=== PATIENT | female | born 1985 ===

== ENCOUNTER 2016-05-04 19:32 | Emergency (ER) | payer OTHER ==
[2016-05-04 19:41] VITALS: BP 143/73; PULSE 72; RESP 16; TEMP 98.4; O2SAT 99
[2016-05-04 20:48] LABS: ALB/GLOB RATIO 1.2 (1.0-2.1); ALKALINE PHOSPHATASE 110 U/L (38-126); ALT/SGPT 25 U/L (9-52); AST/SGOT 22 U/L (14-36); BILIRUBIN,TOTAL 0.4 mg/dl (0.2-1.3); BLOOD UREA NITROGEN 11 mg/dl (7-17); CALCIUM 9.9 mg/dL (8.4-10.2); CARBON DIOXIDE 26 mmol/L (22-30); CHLORIDE 101 mmol/L (98-107); GFR AFRICAN-AMERICAN > 60; GLUCOSE,RANDOM 94 mg/dL (65-105); POTASSIUM 3.8 MMOL/L (3.6-5.0); SODIUM 143 mmol/l (132-148); TOTAL PROTEIN 8.3 G/DL (6.3-8.2)
[2016-05-04 20:52] LABS: BASO # 0.1 K/uL (0.0-0.2); BASO % 0.6 % (0.0-2.0); EOS # 0.1 K/uL (0.0-0.7); HEMATOCRIT 39.5 % (34.0-47.0); LYMPH # 2.3 K/uL (1.0-4.3); MEAN CELL VOLUME 92.6 fl (81.0-99.0); MEAN CORPUSCULAR HEMOGLOBIN 30.1 pg (27.0-31.0); MEAN CORPUSCULAR HGB CONC 32.6 g/dL (33.0-37.0); MEAN PLATELET VOLUME 8.4 fl (7.2-11.7); MONO # 0.9 K/uL (0.0-0.8); MONO % 9.4 % (0.0-10.0); NEUT # 6.3 K/uL (1.8-7.0); NRBC % 0.1 % (0.0-0.0); RED CELL DISTRIBUTION WIDTH 14.3 % (11.5-14.5); WHITE BLOOD COUNT 9.7 K/uL (4.8-10.8)
[2016-05-04 20:55] LABS: RBC URINE 1 /hpf (0-3); URINE BILIRUBIN NEGATIVE (NEGATIVE); URINE BLOOD NEGATIVE (NEGATIVE); URINE COLOR STRAW (YELLOW); URINE GLUCOSE (UA) NEG (Normal); URINE KETONE NEGATIVE (NEGATIVE); URINE LEUKOCYTE ESTERASE MOD Leu/uL (Negative); URINE PROTEIN NEGATIVE (NEGATIVE); URINE UROBILINOGEN 0.2-1.0 mg/dL (0.2-1.0)
--- NOTE | 2016-05-04 21:05 | ED PDOC ---
HPI: Female Pain Time Seen by Provider: 05/04/16 19:43 Chief Complaint (Nursing): Female Genitourinary Chief Complaint (Provider): Vaginal Spotting History Per: Patient History/Exam Limitations: no limitations Onset/Duration Of Symptoms: Days (x1 month), Intermittent Episodes (daily, in mornings upon waking) Current Symptoms Are (Timing): Still Present Severity: Moderate Associated Symptoms: Other (occasional post-coital bleeding; no abdominal pain or shortness of breath). denies: Fever, Chills, Nausea, Vomiting, Diarrhea Additional Complaint(s): Nora Brewer is a 31 year old female, with no pertinent past medical history, who presents to the ED on 05/04/16 for the evaluation of irregular vaginal spotting that she has experienced x1 month. Patient states that bleeding usually occurs in the morning upon her waking, with spontaneous resolvation within 30-40 minutes and no further bleeding throughout the day. She also reports the occasional passage of clots as well as occasional episodes of post-coital bleeding. Denies fever, chills, shortness of breath, cough, abdominal pain, nausea, vomiting, diarrhea or recent weight loss. Of note, patient admits that she has had no regular medical check ups x3 years secondary to her work schedule, and that her last OB-[employer] TESTER visit was during her last 3 years ago. PMD: none Past Medical History Reviewed: Historical Data, Nursing Documentation, Vital Signs Vital Signs: Last Vital Signs Temp 98.4 F 05/04/16 19:39 Pulse 72 05/04/16 19:39 Resp 16 05/04/16 19:39 BP 143/73 05/04/16 19:39 Pulse Ox 99 05/04/16 19:39 - Medical History PMH: No Chronic Diseases - Surgical History Surgical History: No Surg Hx - Family History Family History: States: Diabetes (mother) - Social History Current smoker - smoking cessation education provided: No Alcohol: None Drugs: Denies - Allergies Allergies/Adverse Reactions: Allergies Allergy/AdvReac Type Severity Reaction Status Date / Time No Known Allergies Allergy Verified 05/04/16 19:39 Review of Systems ROS Statement: Except As Marked, All Systems Reviewed And Found Negative Constitutional: Negative for: Fever, Chills Respiratory: Negative for: Cough, Shortness of Breath Gastrointestinal: Negative for: Nausea, Vomiting, Abdominal Pain, Diarrhea Genitourinary Female: Positive for: Vaginal Bleeding (morning spotting, occasional post-coital bleeding) Physical Exam - Reviewed Nursing Documentation Reviewed: Yes Vital Signs Reviewed: Yes - Physical Exam Appears: Positive for: Non-toxic, No Acute Distress Head Exam: Positive for: ATRAUMATIC, NORMOCEPHALIC Skin: Positive for: Normal Color, Warm, Dry Eye Exam: Positive for: Normal appearance, PERRL Cardiovascular/Chest: Positive for: Regular Rate, Rhythm. Negative for: Murmur Respiratory: Positive for: Normal Breath Sounds. Negative for: Respiratory Distress Gastrointestinal/Abdominal: Positive for: Normal Exam, Soft. Negative for: Tenderness Neurologic/Psych: Positive for: Alert, Oriented - Laboratory Results Result Diagrams: 05/04/16 20:26 05/04/16 20:26 - ECG O2 Sat by Pulse Oximetry: 99 (RA) Pulse Ox Interpretation: Normal Medical Decision Making Medical Decision Makin:43 Initial Impression: 31 year old female with irregular vaginal spotting and occasional post-coital bleeding Initial Plan: * Transvaginal US * Labs * PTT * PT * Upreg * Udip * Urinalysis * Urine Culture * Reevaluation US pelvis impression: Right ovarian cyst. 2305: Labs reviewed, show no clinically significant findings. Discussed relevance of findings with patient and offered pelvic exam. Patient states she would rather have performed by OBGYN. [facility]erred to [facility] and patient stable for d/c. Dx: irregular menstrual bleeding stable Scribe Attestation: Documented by Antonia Ham, acting as a scribe for Hoang Magallon MD. Provider Scribe Attestation: All medical record entries made by the Scribe were at my direction and personally dictated by me. I have reviewed the chart and agree that the record accurately reflects my personal performance of the history, physical exam, medical decision making, and the department course for this patient. I have also personally directed, reviewed, and agree with the discharge instructions and disposition. Disposition - Clinical Impression Clinical Impression: Irregular menstrual bleeding - Patient ED Disposition Is Patient to be Admitted: No Counseled Patient/Family Regarding: Studies Performed, Diagnosis, Need For Followup - Disposition Referrals: [facility] [Outside] Disposition: Routine/Home Disposition Time: 23:05 Condition: STABLE Instructions: Menorrhagia (ED) Print Language: TAIWANESE
[2016-05-04 21:12] LABS: URINE BACTERIA FEW (<OCC); WBC URINE 4 /hpf (0-5)
[2016-05-04 21:18] LABS: PARTIAL THROMBOPLASTIN TIME 27.7 SECONDS (23.3-32.5)
--- NOTE | 2016-05-04 21:37 | US ---
EXAM: US Pelvis Complete, Transabdominal. CLINICAL HISTORY: 31 years old, female; Signs and symptoms; Menstruation abnormalities; Irregular menstruation; Additional info: Irregular mednstrual bleeding TECHNIQUE: Real-time transabdominal pelvic ultrasound (complete) with image documentation. COMPARISON: No relevant prior studies available. FINDINGS: Uterus/cervix: Uterus measures 9.1 x 4.4 x 5.4 cm in size. No myometrial mass. Endometrium: 1.0 cm in thickness. Right ovary: 2.5 x 2.0 x 2.8 cm in size. 1.8 x 1.2 x 2.0 cm anechoic lesion. Normal flow. Left ovary: 1.4 x 0.9 x 1.2 cm in size. No mass. Normal flow. Free fluid: No significant free fluid. Bladder: Unremarkable as visualized. IMPRESSION: 1. RIGHT ovarian cyst. 2. Incidental/non-acute findings are described above. EXAM: US Pelvis, Transvaginal. CLINICAL HISTORY: 31 years old, female; Signs and symptoms; Menstruation abnormalities; Irregular menstruation; Additional info: Irregular mednstrual bleeding TECHNIQUE: Real-time transvaginal pelvic ultrasound (complete) with image documentation. Transvaginal imaging was used for better evaluation of the endometrium and adnexa. COMPARISON: No relevant prior studies available. FINDINGS: Uterus/cervix: Uterus measures 9.1 x 4.4 x 5.4 cm in size. No myometrial mass. Endometrium: 1.0 cm in thickness. Right ovary: 2.5 x 2.0 x 2.8 cm in size. 1.8 x 1.2 x 2.0 cm anechoic lesion. Normal flow. Left ovary: 1.4 x 0.9 x 1.2 cm in size. No mass. Normal flow. Free fluid: No significant free fluid. Bladder: Empty bladder which cannot be evaluated with this probe.
== END 2016-05-04 23:13 | disposition home or self-care (01) ==
LOC: H.ER 19:32
DX: N92.6 Irregular menstruation, unspecified (principal); N83.201 Unspecified ovarian cyst, right side

== ENCOUNTER 2017-01-31 08:17 | Day surgery (SDC) | payer SELFPAY ==
[2017-01-31 08:59] VITALS: RESP 18
[2017-01-31 09:09] VITALS: BMI 24.7
[2017-01-31] MEDS ORDERED: Propofol 10 mg/ml Inj (20 ML) ONE ×2 (10:43→11:41)
[2017-01-31] MEDS ORDERED: Midazolam 2 MG/2 ML VIAL ONE (10:44)
[2017-01-31] MEDS ORDERED: Strong Iodine Topical Sol. 5%-10% ONE ×2 (11:12→11:13)
[2017-01-31] MEDS ORDERED: Ferric Subsulfate Sol(60 mL) ONE (11:13)
[2017-01-31] MEDS ORDERED: ACETIC ACID 3% 30 ML LIQUID MC ONE (11:18)
[2017-01-31] MEDS ORDERED: ePHEDrine 50 mg/ml Inj ONE (11:57)
[2017-01-31] MEDS ORDERED: Dexamethasone 4 mg/1 ml ONE (12:02)
[2017-01-31] MEDS ORDERED: Lactated Ringer's 1,000 ML IV ONE (12:07)
[2017-01-31] MEDS ORDERED: HYDROmorphone 0.5 mg/0.5 ml ISec IVP PRN (12:37)
[2017-01-31 14:16] VITALS: BP 116/69; PULSE 86; TEMP 98.6; O2SAT 100
--- NOTE | 2017-02-08 07:26 | OP ---
PROCEDURE DATE: 01/31/2017 PREOPERATIVE DIAGNOSIS: Cervical dysplasia, cervical intraepithelial neoplasia 2. POSTOPERATIVE DIAGNOSIS: Cervical dysplasia, cervical intraepithelial neoplasia 2 PROCEDURE: Loop electrosurgical excision procedure. SURGEON: Estiven Caba MD TYPE OF ANESTHESIA: General. ANESTHESIA ADMINISTERED BY: INDICATIONS: This is a 31-year-old G5, P4 with a history of an abnormal Pap smear and the Pap smear showing ASCUS, HPV positive; a subsequent colposcopy with biopsies were significant for SAMY 2. Due to this, the patient was advised to undergo a LEEP procedure. The patient has no significant past medical or surgical history. All the risks and benefits were discussed with the patient including the potential risk for labor, cervical incompetence and premature rupture of membranes if she should become in the future. The patient accepted all the risks. All questions were answered and she was taken to the operating room in a stable condition. FINDINGS: A bimanual exam revealed a normal-sized midline uterus with no adnexal masses palpated and the cervix did not appear to have any gross masses. After Lugol solution was applied, the areas of non-uptake revealed around the entire squamocolumnar junction. SPECIMEN: Ectocervix anterior and posterior portions. ESTIMATED BLOOD LOSS: 50 mL. INTRAVENOUS FLUIDS: 1600 mL of Lactated Ringer's. DESCRIPTION OF PROCEDURE: The patient was taken to the operating room where she was placed under general anesthesia without difficulty. She was then prepped and draped in the usual sterile fashion and placed in the dorsal lithotomy position. A preoperative bimanual exam revealed the findings as above and a preoperative beta quantitative test was negative for . At this time, a speculum was placed into the vagina and the cervix was well visualized. The Lugol solution was then painted along the entire cervix and vaginal wall. Areas of non-uptake were noted to be around the entire squamocolumnar junction. The large loop was then used to remove the anterior and posterior portion of the cervix and this excised specimen was sent to pathology. The bed of the excised cervical tissue was then cauterized using the roller ball. Hemostasis was noted. Monsel solution was also placed to achieve adequate hemostasis. The patient tolerated the procedure well without complications and was taken to the recovery room in stable condition. She was informed to continue pelvic rest and return to the office in two weeks for pathology results and postoperative followup. Estiven Caba MD
== END 2017-01-31 14:15 | disposition home or self-care (01) ==
LOC: H.OPSURG 08:17
PROVIDERS: ATTEND Obstetrics & Gynecology
DX: N87.1 Moderate cervical dysplasia (principal); N72 Inflammatory disease of cervix uteri; N88.8 Other specified noninflammatory disorders of cervix uteri
CPT/HCPCS: 57522; 88304; J1100; J2001; J2250; J2405; J2704; J3010; J7030; J7120

== ENCOUNTER 2017-04-24 22:10 | Emergency (ER) | payer SELFPAY ==
[2017-04-24 22:10] VITALS: BMI 24.7
[2017-04-24 22:35] VITALS: BP 134/74; PULSE 83; RESP 16; TEMP 98.5; O2SAT 100
--- NOTE | 2017-04-24 23:03 | ED PDOC ---
HPI: Female Pain Time Seen by Provider: 04/24/17 22:41 Chief Complaint (Nursing): Female Genitourinary Chief Complaint (Provider): vaginal bleeding History Per: Patient History/Exam Limitations: no limitations Onset/Duration Of Symptoms: Days (5) Current Symptoms Are (Timing): Still Present Quality Of Discomfort: Cramping Additional Complaint(s): 32 y/o female presents with vaginal bleeding x 5 days. Associated suprapubic pain. Denies fever, nausea/vomiting, chest pain, shortness of breath, palpitations, urinary symptoms. LMP 04/08/17; periods usually regular as per patient Past Medical History Reviewed: Historical Data, Nursing Documentation, Vital Signs Vital Signs: Last Vital Signs Temp 98.5 F 04/24/17 22:32 Pulse 83 04/24/17 22:32 Resp 16 04/24/17 22:32 BP 134/74 04/24/17 22:32 Pulse Ox 100 04/24/17 22:32 - Medical History PMH: No Chronic Diseases - Surgical History Surgical History: No Surg Hx - Family History Family History: States: Diabetes (mother) - Living Arrangements Living Arrangements: With Family - Home Medications Home Medications: Ambulatory Orders Medication Instructions Recorded Ibuprofen [Motrin] 600 mg PO Q6 PRN 01/31/17 - Allergies Allergies/Adverse Reactions: Allergies Allergy/AdvReac Type Severity Reaction Status Date / Time No Known Allergies Allergy Verified 06/22/16 19:29 Review of Systems ROS Statement: Except As Marked, All Systems Reviewed And Found Negative Genitourinary Female: Positive for: Vaginal Bleeding, Pelvic Pain Physical Exam - Reviewed Nursing Documentation Reviewed: Yes Vital Signs Reviewed: Yes - Physical Exam Appears: Positive for: Well, Non-toxic, No Acute Distress Head Exam: Positive for: ATRAUMATIC, NORMAL INSPECTION, NORMOCEPHALIC Skin: Positive for: Normal Color Eye Exam: Positive for: Normal appearance ENT: Positive for: Normal ENT Inspection Cardiovascular/Chest: Positive for: Regular Rate, Rhythm Respiratory: Positive for: Normal Breath Sounds Gastrointestinal/Abdominal: Positive for: Bowel Sounds, Soft, Tenderness ( suprapubic) Pelvic Exam: Positive for: External Exam Normal, No Cerv. 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) Back: Positive for: Normal Inspection Extremity: Positive for: Normal ROM Neurologic/Psych: Positive for: Alert, Oriented - Laboratory Results Result Diagrams: 04/24/17 23:31 04/24/17 23:31 - ECG O2 Sat by Pulse Oximetry: 100 - Progress ED Course And Treament: labs, u/s, IV fluids, IV toradol EXAM: US Pelvis, Transvaginal US Duplex Arterial/Venous of the Pelvis, Complete EXAM DATE/TIME: 04/24/2017 10:49 PM CLINICAL HISTORY: 32 years old, female; Signs and symptoms; Menstruation abnormalities; Excessive menstruation; With irregular cycle; Additional info: Pelvic pain, vaginal bleeding; LMP TECHNIQUE: Real-time transvaginal pelvic ultrasound (complete) with image documentation. Transvaginal imaging was used for better evaluation of the endometrium and adnexa. Real-time duplex ultrasound scan of the arterial and venous flow of the pelvis with color Doppler flow and spectral waveform analysis. COMPARISON: There are no prior studies for comparison. FINDINGS: Uterus/cervix: Uterus measures approximate 8.4 x 4.3 x 5.5 cm. Endometrium measures 9.4 mm in width. Right ovary: Right ovary measures approximately 2.6 x 1.6 x 2.4 cm.There are multiple small follicles. There is intraovarian blood flow. Left ovary: Left ovary measures approximately 2.9 x 1.9 x 1.7 cm.There are multiple small follicles. There is intraovarian blood flow. Free fluid: There is no free fluid. 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 Advised Tylenol/Ibuprofen PRN pain. Return precautions given. Disposition - Clinical Impression Clinical Impression: Irregular menstrual bleeding - Patient ED Disposition Is Patient to be Admitted: No Counseled Patient/Family Regarding: Studies Performed, Diagnosis, Need For Followup - Disposition Referrals: [facility] [Outside] Disposition: Routine/Home Disposition Time: 01:01 Condition: STABLE Instructions: Absent or Irregular Periods Print Language: LUXEMBOURGER
[2017-04-24 23:46] LABS: BASO # 0.1 K/uL (0.0-0.2); BASO % 1.3 % (0.0-2.0); EOS # 0.2 K/uL (0.0-0.7); EOS % 3.1 % (0.0-4.0); HEMOGLOBIN 10.4 g/dL (12.0-16.0); LYMPH # 2.1 K/uL (1.0-4.3); LYMPH % 28.1 % (20.0-40.0); MEAN CELL VOLUME 87.5 fl (81.0-99.0); MEAN CORPUSCULAR HEMOGLOBIN 28.7 pg (27.0-31.0); MEAN CORPUSCULAR HGB CONC 32.8 g/dL (33.0-37.0); MEAN PLATELET VOLUME 8.2 fl (7.2-11.7); MONO # 0.8 K/uL (0.0-0.8); MONO % 10.4 % (0.0-10.0); NEUT # 4.3 K/uL (1.8-7.0); NEUT % 57.1 % (50.0-75.0); NRBC % 0.2 % (0.0-0.0); RBC 3.63 Mil/uL (3.80-5.20); RED CELL DISTRIBUTION WIDTH 15.3 % (11.5-14.5); WHITE BLOOD COUNT 7.5 K/uL (4.8-10.8)
[2017-04-24 23:58] LABS: ALB/GLOB RATIO 1.2 (1.0-2.1); ALT/SGPT 23 U/L (9-52); AST/SGOT 18 U/L (14-36); BLOOD UREA NITROGEN 18 mg/dl (7-17); CALCIUM 9.1 mg/dL (8.4-10.2); GFR AFRICAN-AMERICAN > 60; GFR NON-AFRICAN AMERICAN > 60
--- NOTE | 2017-04-25 00:20 | US ---
EXAM: US Pelvis, Transvaginal US Duplex Arterial/Venous of the Pelvis, Complete EXAM DATE/TIME: 04/24/2017 10:49 PM CLINICAL HISTORY: 32 years old, female; Signs and symptoms; Menstruation abnormalities; Excessive menstruation; With irregular cycle; Additional info: Pelvic pain, vaginal bleeding; LMP 04/20/17 TECHNIQUE: Real-time transvaginal pelvic ultrasound (complete) with image documentation. Transvaginal imaging was used for better evaluation of the endometrium and adnexa. Real-time duplex ultrasound scan of the arterial and venous flow of the pelvis with color Doppler flow and spectral waveform analysis. COMPARISON: There are no prior studies for comparison. FINDINGS: Uterus/cervix: Uterus measures approximate 8.4 x 4.3 x 5.5 cm. Endometrium measures 9.4 mm in width. Right ovary: Right ovary measures approximately 2.6 x 1.6 x 2.4 cm.There are multiple small follicles. There is intraovarian blood flow. Left ovary: Left ovary measures approximately 2.9 x 1.9 x 1.7 cm.There are multiple small follicles. There is intraovarian blood flow. Free fluid: There is no free fluid. Bladder: Not visualized old IMPRESSION: Normal pelvic ultrasound
[2017-04-25] MEDS ORDERED: Sodium Chloride 0.9% 1,000 ML IV STA (00:36)
== END 2017-04-25 02:05 | disposition home or self-care (01) ==
LOC: H.ER 22:10
DX: N92.6 Irregular menstruation, unspecified (principal)
CPT/HCPCS: 76830; 80053; 85025; 99283; J1885; J7040

== ENCOUNTER 2018-04-24 20:25 | Inpatient (IN) | payer MEDICAID ==
[~2018-04-24 20:25] MED LIST: Lactated Ringer's 1,000 ML IV ONE
[2018-04-24 20:35] VITALS: BMI 30.2
[2018-04-24] MEDS ORDERED: Lactated Ringer's 1,000 ML IV ONE ×2 (21:00→21:30)
[2018-04-24 21:33] LABS: BASO % 0.4 % (0.0-2.0); EOS % 0.3 % (0.0-4.0); HEMOGLOBIN 13.7 g/dL (12.0-16.0); LYMPH # 1.4 K/uL (1.0-4.3); LYMPH % 12.7 % (20.0-40.0); MEAN CELL VOLUME 93.7 fl (81.0-99.0); MEAN CORPUSCULAR HEMOGLOBIN 31.4 pg (27.0-31.0); MEAN CORPUSCULAR HGB CONC 33.5 g/dL (33.0-37.0); MEAN PLATELET VOLUME 8.9 fl (7.2-11.7); MONO # 0.9 K/uL (0.0-0.8); MONO % 8.6 % (0.0-10.0); NEUT # 8.5 K/uL (1.8-7.0); RBC 4.38 Mil/uL (3.80-5.20); RED CELL DISTRIBUTION WIDTH 16.4 % (11.5-14.5); WHITE BLOOD COUNT 10.9 K/uL (4.8-10.8)
[2018-04-24] MEDS ORDERED: Fentanyl/Bupivacaine HCl 250 ML EPI ONE (22:58)
[2018-04-24] MEDS ORDERED: Bupivacaine HCl 0.5% PF (30 ml) Inj ONE (23:06)
[2018-04-24] MEDS ORDERED: Lactated Ringer's 1,000 ML IV SCH (23:15)
[2018-04-24 23:45] VITALS: O2SAT 100
[2018-04-25] MEDS ORDERED: Oxytocin 30 UNIT 30 UNITS/500 ML BAG IV ONE ×2 (01:21→02:04)
--- NOTE | 2018-04-25 01:29 | OBHP ---
Datetime: 04/25/2018 01:15 Presentation-Admit: Vertex IP Fetus A Comments: Last 10m no decels FHR - Baseline A Provider: 140 Amniotic Fluid Color, Provider: Meconium, Light Membranes, Provider: Ruptured Contraction Comments Provider: irregular Pool Provider: Positive NICHD Variability Prov Fetus A: Moderate 6-25bpm NICHD Accel Fetus A IP Provider: 15X15 FHR Category Provider Fetus A: Category I NICHD Decel Fetus A IP Provider: None Dilatation, Provider: 4-5 Effacement, Provider: 75 Station, Provider: -2 Datetime: 04/24/2018 21:06 IP Adm Impression: Term, intrauterine ; No Active Labor; Intact Membranes IP Admit Plan: Admit to unit; Initiate labor protocol Admit Comment, IP Provider: 33 y.o @ 41 wks here for induction of labor. Patient also report s ctx, 6/10 that started at 1am this morning, and are occurring every 4-5 minutes. She also noticed s ome bleeding 2-3 hrs ago, and smalll amt of fluid loss. She endorses + fm. She denied any f/c/vomitti ng, diarrhea, cp or shortness of breath. OBGYNhx: x 4, no complications, sab x 2; SAMY ii s/p LEEP 01/2017; hx of depression PMH: denies All: denies Meds: PNV Surghx: LEEP Famhx: Mother- Diabetes Father- healthy Sochx:denies cigarette, EtOH or elicit drug use ROS: all 12 points reviewed and otherwise neg PE: Gen: female awake, laying upright grimacing in pain Cardio: s1s2, no murmurs Lungs: cta b/l no wheeze Abd: Gravid, nontender, no rigidity, no guarding Pelvic: spec-neg for pooling, some vag bleeding noted, nitrazine test neg; 2-3 cm, 50-60%, -3 Ext: calves nontender, nonedematous A/P: 33 y.o @ 41 wks, clinically stable, here for induction of labor c/o ctx, vaginal blee ding, and srom. -Initiate labor protocol. -ROM ruled out. 2-3 cm, 50-60%, -3 Will hydrate, give enema, and recheck in 1-2 hours. Case discussed with Dr. Ellen Tristan, PGY-1 OB Hospitalist on-call. Pt seen and examined with PGY1. She is in early labor at 41w. Pain samir gement, labor, delivery and discussed. MAHNDO Extremities - PN: Normal Abdomen - PN: Normal Lungs - PN: Normal Heart - PN: Normal General - PN: Normal Nitrazine Provider: Negative IP Hx Assessment: The History has been Reviewed and is Current EGA AdmitDate IP: 41.0 Vital Signs Provider: Reviewed IP Chief Complaint: Uterine contractions; Suspected ruptured membranes; Vaginal bleeding
--- NOTE | 2018-04-25 01:29 | OBPN ---
Datetime: 04/25/2018 01:15 IP Progress Impression: Reassuring heart rate IP Progress Plan: Augmentation; Anticipate Vaginal Delivery Pool Provider: Positive Membranes, Provider: Ruptured Amniotic Fluid Color, Provider: Meconium, Light Contraction Comments Provider: irregular FHR - Baseline A Provider: 140 IP Fetus A Comments: Last 10m no decels Presentation-Admit: Vertex IP Progress Note Comment: She had been given epidural but she still feels CTX pain. She was checked at 12am andwas 4cm...she had SROM at 12:18am thin meconium FHR earlier - CAT 2 with good recovery...CAT 1 since placed on right side A: latent phase of labor/irregular CTX PLAN: will get anesthesia to re-evaluate...conditoin explained to pt...once she is more comfortabl e will augment labor (pitocin to be started). her questoins answered NICHD Accel Fetus A IP Provider: 15X15 FHR Category Provider Fetus A: Category I NICHD Variability Prov Fetus A: Moderate 6-25bpm Dilatation, Provider: 4-5 Effacement, Provider: 75 Station, Provider: -2 MEDD Decel Fetus A IP Provider: None Datetime: 04/24/2018 21:06 Nitrazine Provider: Negative Vital Signs Provider: Reviewed
[2018-04-25] MEDS ORDERED: Bupivacaine HCl 0.5% PF (30 ml) Inj ONE (01:39)
[2018-04-25] MEDS ORDERED: OXYTOCIN/0.9 % NS 20 UNIT/1,000 ML BAG IV ONE (02:04)
[2018-04-25] MEDS ORDERED: Oxycodone/Acetaminophen 5/325 mg Tab PO PRN ×4 (02:25→05:38)
[2018-04-25] MEDS ORDERED: Benzocaine/Menthol SPRAY TOP PRN ×2 (02:25→05:38)
[2018-04-25] MEDS ORDERED: Lidocaine 1% (10 ml) Inj INJ ONE (04:45)
--- NOTE | 2018-04-25 07:52 | OBDS ---
DELIVERY PERSONNEL Delivery Doctor: Eliud Hughes DO Scrub Nurse: [employer] Engineer: Almaz Anne RN Anesthesiologist: Dr. Unger Resident: Dr. Tristan PGY1 MATERNAL INFORMATION Delivery Anesthesia: Epidural Medications in Delivery: 30 units of pitocin, lidocaine Placenta Cultured: No Maternal Complications: Other Other Maternal Complications: variable decelerations, lite meconium SROM Provider Comments: of live viable female infant over intact perineum with epidural anesthesia. Meconium noted; no nuchal cord. Apgars 9,9. Baby suctioned at perineum, and placed on mother for skin to skin. Cord double clamped and cut by father. Spontaneous delivery of placenta with 3-vessel cord. No lacerations. 500ml fluid loss before placenta; 600ml fluid loss after placenta delivered; EBL: 10 0ml With PGY1, I attended vaginal delivery. agree with note MAHNDO LABOR SUMMARY EDC: 04/17/2018 00:00 No. Babies in Womb: 1 Attempted: No Labor Anesthesia: Epidural LABOR INFORMATION Reason for Induction: Not Applicable Reason for Induction Other: pt was schedulded IOL but came in in labor Onset of Labor: 04/24/2018 01:00 Complete Dilatation: 04/25/2018 01:56 Oxytocin: N/A Group B Beta Strep: Negative Steroids Given: None Reason Steroids Not Administered: Not Applicable MEMBRANES Membranes Rupture Method: Spontaneous Rupture of Membranes: 04/25/2018 00:18 Length of Rupture (hrs): 2.07 Amniotic Fluid Color: Light Meconium Amniotic Fluid Amount: Moderate Amniotic Fluid Odor: Normal STAGES OF LABOR Stage 1 hrs: 24 Stage 1 min: 56 Stage 2 hrs: 0 Stage 2 min: 26 Stage 3 hrs: 0 Stage 3 min: 5 Total Time in Labor hrs: 25 Total Time in Labor min: 27 VAGINAL DELIVERY Episiotomy: None Laceration Extension: N/A Laceration Type: None Laceration Repair: Not Applicable Initial Vag Sponge Count: 5 Final Vag Sponge Count: 5 Initial Vag Sharps Count: 1 Final Vag Sharps Count: 1 Sponge Count Correct: Yes Sharps Count Correct: Yes Count Comment: only 18 gauge for syringe for lidocaine used BABY A INFORMATION Infant Delivery Date/Time: 04/25/2018 02:22 Method of Delivery: Vaginal Born in Route : No : N/A Forceps: N/A Vacuum Extraction: N/A Shoulder Dystocia : No SHOULDER DYSTOCIA BABY A Infant Delivery Date/Time: 04/25/2018 02:22 PRESENTATION/POSITION BABY A Presentation: Cephalic Cephalic Presentation: Vertex PLACENTA INFORMATION BABY A Placenta Delivery Time : 04/25/2018 02:27 Placenta Method of Delivery: Spontaneous Placenta Status: Delivered SCORES BABY A Heart Rate 1 min: >100 bpm Resp Effort 1 min: Good Cry Reflex Irritability 1 min: Cough or Sneeze or Pulls Away Muscle Tone 1 min: Active Motion Color 1 min: Body [place], Extremities Blue Resuscitation Effort 1 min: N/A; Tactile Stimulation SCORE 1 MIN: 9 Heart Rate 5 min: >100 bpm Resp Effort 5 min: Good Cry Reflex Irritability 5 min: Cough or Sneeze or Pulls Away Muscle Tone 5 min: Active Motion Color 5 min: Body [place], Extremities Blue Resuscitation Effort 5 min: N/A SCORE 5 MIN: 9 INFANT INFORMATION BABY A Gestational Age at Delivery: 41.1 Gestational Status: Post-term Infant Outcome : Liveborn Infant Condition : Stable Infant Sex: Female IDENTIFICATION/MEDS BABY A ID Band Number: [id number] ID Band Location: Left Leg; Left Arm WEIGHT/LENGTH BABY A Birthweight (gms): 3695 Weight (lb): 8 Weight (oz): 2 CORD INFORMATION BABY A No. Cord Vessels: 3 Nuchal Cord : N/A Nuchal Cord Other: N/A True Knot: N/A Cord pH Baby Arterial: N/A Cord pH Baby Venous: N/A Cord Blood Taken: Yes Banking/Donate Info: N/A Infant Suction: Mouth; Nose ASSESSMENT BABY A Complications: Multiple Variable Decels; Other Complications Other: lite meconium with SROM Physical Findings at Delivery: Within Normal Limits Respirations: Appears Normal Product Blending Supervisor/ALS Called : No Infant Care By: Dr. Rodríguez Love LDOmingoRN Transferred To: Remains with Mother
[2018-04-26 06:33] LABS: BASO # 0.1 K/uL (0.0-0.2); BASO % 0.8 % (0.0-2.0); EOS # 0.1 K/uL (0.0-0.7); EOS % 1.5 % (0.0-4.0); LYMPH % 21.4 % (20.0-40.0); MEAN CELL VOLUME 94.1 fl (81.0-99.0); MEAN CORPUSCULAR HEMOGLOBIN 32.3 pg (27.0-31.0); MEAN CORPUSCULAR HGB CONC 34.4 g/dL (33.0-37.0); MEAN PLATELET VOLUME 8.5 fl (7.2-11.7); MONO % 10.3 % (0.0-10.0); NEUT # 6.2 K/uL (1.8-7.0); NRBC % 0.1 % (0.0-0.0); RBC 3.48 Mil/uL (3.80-5.20); RED CELL DISTRIBUTION WIDTH 16.2 % (11.5-14.5); WHITE BLOOD COUNT 9.4 K/uL (4.8-10.8)
[2018-04-26 06:36] LABS: HEMOGLOBIN 11.3 g/dL (12.0-16.0)
--- NOTE | 2018-04-26 13:44 | OBPPN ---
Datetime: 04/26/2018 06:09 PP Pain Prov: Within normal limits PP Nausea Prov: Denies PP Flatus Prov: Yes PP BM Prov: No PP Heart Prov: Normal PP Lungs Prov: Normal PP Abdomen/Uterus Prov: Normal PP Lochia Prov: Normal PP Extremities Prov: Normal PP Impression Prov: Normal progression PP Plan Prov: Continue present management PP Progress Note Prov: 33 y/o PPD 1 s/p was examined this AM. Patient is tolerating reg diet w/o n or v. She is ambulating w/o difficulty. She is her . Lochia like men ses. +Flatus, -BM. Denies f/c/cp, sob, lightheadedness or dizziness. PE: Gen: awake laying in bed Cardio: s1s2 auscultated, no murmurs Lungs: cta b/l Abd: soft, appropriate tenderness, no rigidity or guarding Ext: calves nontender, nonedematous A/P: 33 y/o , clinically stable PPD 1 s/p . -Continue to encourage ambulation _ -Continue pain medication regimen -Anticipated dc 04/27/2018 Case discussed with attending -Cathy Tristan, PGY-1 Attending addendum: I saw and examined the patient at bedside myself this morning. I reviewed the resident note above and agree with findings and management. Anticipate DC home tomorrow. Dianne Nielson MD IP PP Procedures: None (Annotations: Data stored by [facility] on behalf of user) Vital Signs Provider PP: Reviewed; Within Normal Limits
[2018-04-26 18:44] VITALS: BP 110/76; PULSE 75; RESP 20; TEMP 98.2
== END 2018-04-26 12:30 | disposition home or self-care (01) | DRG 560 ==
LOC: H.L&D 20:34 → H.OB/GYN 04-25 05:15
PROVIDERS: ADMIT Obstetrics & Gynecology; ATTEND Obstetrics & Gynecology
PROC: 4A1HXCZ Monitoring of Products of Conception, Cardiac Rate, External Approach (ICD-10-PCS; 2018-04-24)
PROC: 10E0XZZ Delivery of Products of Conception, External Approach (ICD-10-PCS; principal; 2018-04-25)
DX: O76 Abnormality in fetal heart rate and rhythm complicating labor and delivery (principal); O48.0 Post-term pregnancy; Z37.0 Single live birth; O77.0 Labor and delivery complicated by meconium in amniotic fluid; Z3A.41 41 weeks gestation of pregnancy